=== PATIENT | male | born 2000 | race Caucasian/White ===

== ENCOUNTER 2018-03-17 05:15 | Emergency (ER) | payer BC, OTHER ==
--- NOTE | 2018-03-17 08:38 | RAD ---
RADIOGRAPH RIGHT HAND 3 VIEWS: HISTORY: A 18-year-old male status post acute blunt trauma to the hand. FINDINGS: There is no fracture or dislocation. IMPRESSION: Normal. POS: [facility]
== END 2018-03-17 08:47 | disposition home or self-care (01) ==
LOC: ERS 05:15
DX: S60.511A Abrasion of right hand, initial encounter (principal); F12.10 Cannabis abuse, uncomplicated; X58.XXXA Exposure to other specified factors, initial encounter
CPT/HCPCS: 96360